=== PATIENT | female | born 1980 | race Caucasian/White ===

== ENCOUNTER 2017-05-28 07:07 | Emergency (ER) | payer OTHER | END 2017-05-28 09:00 | disposition home or self-care (01) | LOC: ER1 07:07 | DX: R51 Headache (principal); Z88.1 Allergy status to other antibiotic agents; Z88.2 Allergy status to sulfonamides; Z91.040 Latex allergy status; R11.0 Nausea | CPT/HCPCS: 96374; 96375; 99283; J1200; J1885; J2765 ==

== ENCOUNTER 2017-05-28 21:49 | Emergency (ER) | payer OTHER | END 2017-05-28 23:10 | disposition home or self-care (01) | LOC: ER1 21:49 | DX: S93.401A Sprain of unspecified ligament of right ankle, initial encounter (principal); Z88.1 Allergy status to other antibiotic agents; Z88.2 Allergy status to sulfonamides; Z91.040 Latex allergy status; X50.1XXA Overexertion from prolonged static or awkward postures, initial encounter; Y92.008 Other place in unspecified non-institutional (private) residence as the place of occurrence of the external cause | CPT/HCPCS: 73610; 73630; 96372; 99283; J1885 ==

== ENCOUNTER → 2022-02-06 | Outpatient (CLI) | payer OTHER ==
[~2022-02-06] MED LIST: AUGMENTIN 875-1 EACH PO; BUTALB-ACETAMI1 EAC1 PO; COLACE 100MG C100 MG PO; IBUPROFEN600 MG PO; LORTAB 5-325 M1 EACH PO; NORTRIPTYLINE H75 MG PO; ZONISAMIDE100 MG PO
== END ==
LOC: KOH-I 12:46
DX: M47.26 Other spondylosis with radiculopathy, lumbar region (principal); M47.817 Spondylosis without myelopathy or radiculopathy, lumbosacral region; M48.061 Spinal stenosis, lumbar region without neurogenic claudication; M48.07 Spinal stenosis, lumbosacral region; M51.87 Other intervertebral disc disorders, lumbosacral region
CPT/HCPCS: 72148

== ENCOUNTER 2022-02-20 06:30 | Emergency (ER) | payer OTHER ==
[2022-02-20 08:16] LABS: HEMOGLOBIN 13.4 gm/dl (12.3-15.3); RED BLOOD COUNT 4.45 M/UL (4.00-5.10); WHITE BLOOD COUNT 9.6 K/UL (4.5-11.0)
[2022-02-20 09:09] LABS: BUN/CREATININE RATIO 13 (0-10)
[2022-02-20] MEDS ORDERED: AMOX TR-K CLV1 EAC4 PO (10:55)
== END 2022-02-20 11:31 | disposition home or self-care (01) ==
LOC: ER1 06:30
PROVIDERS: Nurse Practitioner
DX: K57.32 Diverticulitis of large intestine without perforation or abscess without bleeding (principal); Z90.89 Acquired absence of other organs; Z90.710 Acquired absence of both cervix and uterus; Z88.2 Allergy status to sulfonamides; Z88.1 Allergy status to other antibiotic agents
CPT/HCPCS: 80053; 81001; 82150; 83690; 85025; 87086; 96374; 96375; 99284; J2270; J2405; J7030; Q9967